=== PATIENT | female | born 1990 | race Caucasian/White ===

== ENCOUNTER 2016-09-19 21:37 | Emergency (ER) | payer MEDICAID ==
[2016-09-19 21:44] VITALS: BP 151/96
--- NOTE | 2016-09-19 21:48 | ER Document Report ---
ED Medical Screen (RME) - General Stated Complaint: RIGHT LEG PAIN Time seen by provider: 21:46 Mode of Arrival: Ambulatory Information source: Patient Notes: 25-year-old female complaining of a burning soreness behind her right knee that started this morning when she woke up. There was no injury. No history of DVT. He talked to a friend of hers who is a nurse and told her she needed to be checked to rule out if it was a blood clot. road trip to [place] 2 weeks ago. HEIDE robb. TRAVEL OUTSIDE OF THE [place] IN LAST 30 DAYS: No - Related Data Allergies/Adverse Reactions: No Known Allergies Allergy (Verified 01/25/15 16:15) Past Medical History - Past Medical History Cardiac Medical History: Reports: Hx Hypertension - She reports last year she had elevated BP, no meds, no HTN now - Immunizations Immunizations up to date: No Hx Diphtheria, Pertussis, Tetanus Vaccination: Yes Physical Exam - Vital signs Vitals: Temp Pulse Resp BP Pulse Ox 98.2 F 90 16 151/96 H 100 09/19/16 21:43 09/19/16 21:43 09/19/16 21:43 09/19/16 21:43 09/19/16 21:43 Course - Vital Signs Vital signs: Temp Pulse Resp BP Pulse Ox 98.2 F 90 16 151/96 H 100 09/19/16 21:43 09/19/16 21:43 09/19/16 21:43 09/19/16 21:43 09/19/16 21:43
--- NOTE | 2016-09-19 23:20 | ER Document Report ---
ED General - General Chief Complaint: Leg Pain Stated Complaint: RIGHT LEG PAIN Mode of Arrival: Ambulatory Notes: Patient is a 25-year-old female without past medical history, current active smoker, has a Mirena IUD who presents with 2 days of progressively worsening right lower extremity pain. States the pain is primarily located over the popliteal fossa. She has described as a constant, aching, mild pain. Nothing improves or worsens the pain. She has no history of similar symptoms in the past. She has not seen her primary care physician regarding today's concerns. Denies any trauma to the area. No prior history of a DVT or pulmonary embolus. She has not noted any significant leg swelling. TRAVEL OUTSIDE OF THE [place] IN LAST 30 DAYS: No - Related Data Allergies/Adverse Reactions: No Known Allergies Allergy (Verified 01/25/15 16:15) Past Medical History - General Information source: Patient - Social History Smoking Status: Current Every Day Smoker Chew tobacco use (# tins/day): No Frequency of alcohol use: Rare Drug Abuse: None Lives with: Spouse/Significant other Family History: Reviewed & Not Pertinent Patient has suicidal ideation: No Patient has homicidal ideation: No - Past Medical History Cardiac Medical History: Reports: Hx Hypertension - She reports last year she had elevated BP, no meds, no HTN now Renal/ Medical History: Denies: Hx Peritoneal Dialysis - Immunizations Immunizations up to date: No Hx Diphtheria, Pertussis, Tetanus Vaccination: Yes Review of Systems - Review of Systems Notes: Constitutional: Negative for fever. HENT: Negative for sore throat. Eyes: Negative for visual changes. Cardiovascular: Negative for chest pain. Respiratory: Negative for shortness of breath. Gastrointestinal: Negative for abdominal pain, vomiting or diarrhea. Genitourinary: Negative for dysuria. Musculoskeletal: Negative for back pain. Right leg pain Skin: Negative for rash. Neurological: Negative for headaches, weakness or numbness. 10 point ROS negative except as marked above and in HPI. Physical Exam - Vital signs Vitals: Temp Pulse Resp BP Pulse Ox 98.2 F 90 16 151/96 H 100 09/19/16 21:43 09/19/16 21:43 09/19/16 21:43 09/19/16 21:43 09/19/16 21:43 Interpretation: Hypertensive Notes: PHYSICAL EXAMINATION: GENERAL: Well-appearing, well-nourished and in no acute distress. HEAD: Atraumatic, normocephalic. EYES: Pupils equal round and reactive to light, extraocular movements intact, sclera anicteric, conjunctiva are normal. ENT: nares patent, oropharynx clear without exudates. Moist mucous membranes. NECK: Normal range of motion, supple without lymphadenopathy LUNGS: Breath sounds clear to auscultation bilaterally and equal. No wheezes rales or rhonchi. HEART: Regular rate and rhythm without murmurs ABDOMEN: Soft, nontender, normoactive bowel sounds. No guarding, no rebound. No masses appreciated. EXTREMITIES: Normal range of motion, no pitting or edema. Pain on palpation of popliteal fossa. No cyanosis. NEUROLOGICAL: No focal neurological deficits. Moves all extremities spontaneously and on command. PSYCH: Normal mood, normal affect. SKIN: Warm, Dry, normal turgor, no rashes or lesions noted. Course - Re-evaluation Re-evalutation: 09/19/16 23:18 Patient presents with symptoms concerning for possible right lower extremities DVT including popliteal fossa discomfort, slight swelling of the leg, and multiple risk factors including smoking and an estrogen containing IUD. However , the degree of swelling is not greater than 1 cm circumference. Moreover, progressively worsening over the last 2 weeks and I do not believe that she should be immediately started on anticoagulation at this time. I have offered the patient can stay here in the emergency department for monitoring and ultrasound in the morning versus returning in the morning for a peripheral ultrasound. She and her at the bedside elected to return in the a.m. for a venous Doppler study to definitively exclude a DVT. Will discharge at this time with instructions to return in the morning. Return precautions also discussed. - Vital Signs Vital signs: Temp Pulse Resp BP Pulse Ox 98.2 F 90 16 151/96 H 100 09/19/16 21:43 09/19/16 21:43 09/19/16 21:43 09/19/16 21:43 09/19/16 21:43 Discharge - Discharge Clinical Impression: Right leg pain Condition: Good Disposition: HOME, SELF-CARE Additional Instructions: Please return the morning for a ultrasound of your right lower extremity to exclude a DVT. Return sooner if you have worsening pain, increased swelling, shortness of breath, pass out or have any other symptoms that are worrisome to you. Referrals: MONICA PORTILLO DIGITAL PRODUCER [Primary Care Provider] - Follow up as needed
== END 2016-09-19 23:30 | disposition home or self-care (01) ==
LOC: ER 21:37
DX: M79.604 Pain in right leg (principal); F17.210 Nicotine dependence, cigarettes, uncomplicated
CPT/HCPCS: 99283

== ENCOUNTER 2016-09-20 12:47 | Emergency (ER) | payer MEDICAID ==
--- NOTE | 2016-09-20 13:03 | ER Document Report ---
ED Medical Screen (RME) - General Stated Complaint: RIGHT LEG PAIN Time seen by provider: 13:02 Mode of Arrival: Ambulatory Information source: Patient Notes: 25-year-old female developed posterior right leg pain yesterday morning. She was seen in the emergency room last night and returned today for the venous Doppler ultrasound. It has already been done and radiology is reading.No reading yet. Prelim by US tech is negative. gait is stable. TRAVEL OUTSIDE OF THE [place] IN LAST 30 DAYS: No - Related Data Allergies/Adverse Reactions: No Known Allergies Allergy (Verified 09/20/16 14:22) Past Medical History - Past Medical History Cardiac Medical History: Reports: Hx Hypertension - She reports last year she had elevated BP, no meds, no HTN now Renal/ Medical History: Denies: Hx Peritoneal Dialysis - Immunizations Immunizations up to date: No Hx Diphtheria, Pertussis, Tetanus Vaccination: Yes Physical Exam - Vital signs Vitals: Temp Pulse Resp BP Pulse Ox 98.4 F 93 16 131/90 H 99 09/20/16 13:24 09/20/16 13:24 09/20/16 13:24 09/20/16 13:24 09/20/16 13:24 Course - Vital Signs Vital signs: Temp Pulse Resp BP Pulse Ox 98.4 F 93 16 131/90 H 99 09/20/16 13:24 09/20/16 13:24 09/20/16 13:24 09/20/16 13:24 09/20/16 13:24
--- NOTE | 2016-09-20 15:56 | ER Document Report ---
[id number] 4d RIGHT LEG PAIN Mode of Arrival: Ambulatory Notes: The patient is a 25-year-old female who presents with 2 days of right lower leg pain and back pain. She was seen in the emergency room last night and was told to come back to the emergency room today for a Doppler ultrasound because of concern for DVT. She is not on OCPs and no recent long travel or immobilization. Denies numbness, tingling, saddle anesthesia, change in bowel or bladder or difficulty walking. TRAVEL OUTSIDE OF THE [place] IN LAST 30 DAYS: No - Related Data Allergies/Adverse Reactions: No Known Allergies Allergy (Verified 09/20/16 14:22) Past Medical History - General Information source: Patient - Social History Smoking Status: Current Every Day Smoker Chew tobacco use (# tins/day): No Frequency of alcohol use: None Family History: Reviewed & Not Pertinent Patient has suicidal ideation: No Patient has homicidal ideation: No - Past Medical History Cardiac Medical History: Reports: Hx Hypertension - She reports last year she had elevated BP, no meds, no HTN now Renal/ Medical History: Denies: Hx Peritoneal Dialysis - Immunizations Immunizations up to date: No Hx Diphtheria, Pertussis, Tetanus Vaccination: Yes Review of Systems - Review of Systems Notes: REVIEW OF SYSTEMS: CONSTITUTIONAL: -fevers, -chills EENT: -eye pain, -difficulty swallowing, -nasal congestion CARDIOVASCULAR:-chest pain, -syncope. RESPIRATORY: -cough, -SOB GASTROINTESTINAL: -abdominal pain, -nausea, -vomiting, -diarrhea GENITOURINARY: -dysuria, -hematuria MUSCULOSKELETAL: +back pain, +right calf pain, -neck pain SKIN: -rash or skin lesions. HEMATOLOGIC: -easy bruising or bleeding. LYMPHATIC: -swollen, enlarged glands. NEUROLOGICAL: -altered mental status or loss of consciousness, -headache, - neurologic symptoms PSYCHIATRIC: -anxiety, -depression. ALL OTHER SYSTEMS REVIEWED AND NEGATIVE. Physical Exam - Vital signs Vitals: Temp Pulse Resp BP Pulse Ox 98.4 F 93 16 131/90 H 99 09/20/16 13:24 09/20/16 13:24 09/20/16 13:24 09/20/16 13:24 09/20/16 13:24 - Notes Notes: PHYSICAL EXAMINATION: GENERAL: Well-appearing, well-nourished and in no acute distress. HEAD: Atraumatic, normocephalic. EYES: Pupils equal round and reactive to light, extraocular movements intact, sclera anicteric, conjunctiva are normal. ENT: nares patent, oropharynx clear without exudates. Moist mucous membranes. NECK: Normal range of motion, supple without lymphadenopathy LUNGS: Breath sounds clear to auscultation bilaterally and equal. No wheezes rales or rhonchi. HEART: Regular rate and rhythm without murmurs ABDOMEN: Soft, nontender, normoactive bowel sounds. No guarding, no rebound. No masses appreciated. EXTREMITIES: Normal range of motion, no pitting or edema. No cyanosis. Right calf tenderness, negative Rolo's sign. Strong distal pulses. NEUROLOGICAL: Cranial nerves grossly intact. Normal speech, normal gait. Normal sensory, motor, and reflex exams. PSYCH: Normal mood, normal affect. SKIN: Warm, Dry, normal turgor, no rashes or lesions noted. Course - Re-evaluation Re-evalutation: DVT ultrasound negative. No red flag signs for low back pain. We will treat with anti-inflammatories and follow up at primary care physician. - Vital Signs Vital signs: Temp Pulse Resp BP Pulse Ox 98.5 F 77 15 127/75 H 100 09/20/16 16:10 09/20/16 16:10 09/20/16 16:10 09/20/16 16:10 09/20/16 16:10 Discharge - Discharge Clinical Impression: Right leg pain Back pain Qualifiers: Back pain location: low back pain Chronicity: acute Back pain laterality: unspecified Sciatica presence: without sciatica Qualified Code(s): M54.5 - Low back pain Condition: Good Disposition: HOME, SELF-CARE Additional Instructions: Your ultrasound does not show any evidence of blood clots in your leg. He may take Tylenol and Motrin to help with any pain. Use Salonpas [id number] lidocaine patches to help with her back pain. Follow-up with your primary care physician. LOW BACK PAIN: Three out of every four people will have an episode of disabling back pain during their lifetime. Most commonly the pain is due to straining of the muscles and ligaments in the low back. Usual treatment includes: (1) Rest on a firm surface. Avoid lying on your stomach. (2) Ice pack the painful area. After a few days, gentle heat may be used intermittently to relax the area, or ice packs can be continued. (3) Medication may be needed -- muscle relaxers and antiinflammatory medicines are commonly used. (4) As the back improves, exercises are prescribed to strengthen the back and abdominal muscles. Your doctor will advise you on the proper care for your back at each stage in your recovery. You may be better in a few days -- or healing may take several weeks. If new symptoms of a "herniated disc" (radiation of pain, numbness, or tingling down the back of the leg or weakness in the leg) occur, you should be re-examined. Further testing may be necessary. ICE PACKS: Apply ice packs frequently against the painful area. Many different schedules are recommended, such as "20 minutes on, 20 minutes off" or "one hour ice, two hours rest." If you need to work, you may need to go longer between ice treatments. You should plan to have the area ice packed AT LEAST one fourth of the time. The ice should be applied over the wrap, tape, or splint, or over a layer of cloth -- not directly against the skin. Some ice bags have a built-in cloth and can be put directly on the skin. WARM PACKS: After approximately two days, apply gentle heat (such as a heating pad or hot water bottle) for about 20 to 30 minutes about every two hours -- at least four times daily. Warmth and elevation will help you make a more rapid recovery , and will ease the pain considerably. Do not use HOT heat, and never apply heat for longer than 30 minutes. The continuous heat can invisibly damage skin and muscles -- even when no burn is seen on the surface. Damaged muscles can make you MORE sore. FOLLOW-UP CARE: If you have been referred to a physician for follow-up care, call the physician s office for an appointment as you were instructed or within the next two days. If you experience worsening or a significant change in your symptoms, notify the physician immediately or return to the Emergency Department at any time for re-evaluation. SPRAIN: Your injury is a sprain. A sprain results from stretching or tearing of the ligaments, usually from a twisting injury. The ligaments will require time and protection in order to heal properly. Many sprains are quite disabling and should be taken seriously. The usual initial treatment of sprains is cold packs, elevation, and rest of the injured area. Your physician has assessed the seriousness of your ligament injury, and has outlined a treatment plan. Understand that this treatment may change, depending on how you progress. If a re-examination was recommended, it is important that you follow up as instructed. Call the doctor any time if there is severe pain, numbness, or loss of function in the injured area. SPRAINED KNEE: Your sprained knee results from a stretching or tearing of the ligaments which support the joint. This often results from a bending stress -- such as a twisting fall while skiing or a "clip" while playing football. The ligaments will require time and protection to heal adequately. A knee sprain can be quite serious, and should be taken seriously. The usual treatment is splinting of the knee, ice packs, and elevation. You shouldn't walk on the leg if weightbearing is painful. Unless the sprain is obviously a minor one, follow-up exam is very important. The degree of ligament damage often cannot be fully assessed at first due to muscle spasm and pain. Your treatment plan may change based on the physician's findings during your follow-up examination. Call the doctor at once if there is severe swelling, increasing pain, numbness, or other alarming symptoms. ICE & ELEVATION: Apply ice packs frequently against the painful area. Many different schedules are recommended, such as "20 minutes on, 20 minutes off" or "one hour ice, two hours rest." If you need to work, you may need to go longer between ice treatments. You should plan to have the area ice packed AT LEAST one- fourth of the time. The ice should be applied over the wrap, tape, or splint, or over a layer of cloth -- not directly against the skin. Some ice bags have a built-in cloth and can be put directly on the skin. Your injured part should be elevated as much as possible over the next 48 hours. Try to keep the injury above the level of the heart. Avoid use of the injured area. Elevation and rest will decrease the swelling. USE OF [id number] IBUPROFEN: Ibuprofen (Advil, Nuprin, Medipren, Motrin IB) is a medication for fever and pain control. In addition, it has anti- inflammatory effects which may be beneficial, especially in the treatment of injuries. It's best to take ibuprofen with food. Persons with ulcer disease or allergy to aspirin should notify their physician of this before taking ibuprofen. Ibuprofen can be given every four to six hours, for a total of four doses daily. Age Pain or fever dose Antiinflammatory dose 6-8 yr 200 mg (1 tab) 200 mg (1 tab) 9-11 yr 200 mg (1 tab) 200-400 mg (1-2 tab) 11-14 yr 200-400 mg (1-2 tab) 400 mg (2 tab) 15-adult 400 mg (2 tab) 600 mg (3 tab) ORAL NARCOTIC MEDICATION: You have been given a prescription for pain control. This medication is a narcotic. It's best taken with food, as nausea can result if taken on an empty stomach. Don't operate machinery or drive within six hours of taking this medication. Do not combine this medicine with alcohol, or with any medication which can cause sedation (such as cold tablets or sleeping pills) unless you get permission from the physician. Narcotics tend to cause constipation. If possible, drink plenty of fluids and eat a diet high in fiber and fruits. Please be aware that prescription narcotics also have the potential for abuse. People become addicted to these medications because of the general sense of wellbeing that they induce. This feeling along with a significant reduction in tension, anxiety, and aggression provides a stimulating seductive quality to these drugs. Once your pain is under control, we encourage you to discard your unused narcotics. FOLLOW-UP CARE: If you have been referred to a physician for follow-up care, call the physician s office for an appointment as you were instructed or within the next two days. If you experience worsening or a significant change in your symptoms, notify the physician immediately or return to the Emergency Department at any time for re-evaluation. Referrals: IVETTE DUMONT MD [Primary Care Provider] - Follow up as needed
[2016-09-20 16:37] VITALS: BP 127/75
== END 2016-09-20 16:10 | disposition home or self-care (01) ==
LOC: ER 12:47
DX: M79.604 Pain in right leg (principal); M54.5 Low back pain; M54.9 Dorsalgia, unspecified; F17.210 Nicotine dependence, cigarettes, uncomplicated
CPT/HCPCS: 93971; 99283

== ENCOUNTER 2016-11-17 07:31 | Day surgery (SDC) | payer MEDICAID ==
[2016-11-11 10:46] LABS: HEMOGLOBIN 13.3 g/dL (12.0-15.5); HGB HCT DIFFERENCE -0.1; MEAN CORPUSCULAR HEMOGLOBIN 28.4 pg (27.0-33.4); MEAN CORPUSCULAR HGB CONC 33.3 g/dL (32.0-36.0); MEAN CORPUSCULAR VOLUME 86 fl (80-97); RED BLOOD COUNT 4.68 10^6/uL (3.72-5.28); RED CELL DISTRIBUTION WIDTH 14.5 % (11.5-14.0); WHITE BLOOD COUNT 7.4 10^3/uL (4.0-10.5)
[2016-11-11 10:50] LABS: APPEARANCE,URINE CLEAR; BILIRUBIN,URINE NEGATIVE (NEGATIVE); GLUCOSE, URINE NEGATIVE (NEGATIVE); KETONES,URINE NEGATIVE (NEGATIVE); LEUKOCYTE ESTERASE,URINE NEGATIVE (NEGATIVE); NITRITE,URINE NEGATIVE (NEGATIVE); PROTEIN,URINE NEGATIVE (NEGATIVE); UROBILINOGEN,URINE NEGATIVE mg/dL (<2.0)
[~2016-11-17 07:31] MED LIST: DEXMEDETOMIDINE INJ 80 MCG/20 ML VIAL IV ONE; FENTANYL CITRATE INJ/PF 100 MCG/2 ML AMPUL ONE; LACTATED RINGERS 1000 ML IV PRN; MIDAZOLAM 2 MG/2 ML INJ ONE; PROPOFOL INJ 200 MG/20 ML VIAL IV ONE
[2016-11-17] MEDS ORDERED: DIPHENHYDRAMINE HCL 50 MG/ML VIAL IV PRN (08:49)
[2016-11-17] MEDS ORDERED: PROMETHAZINE HCL INJ 25 MG/1 ML VIAL IV PRN ×2 (08:49)
[2016-11-17] MEDS ORDERED: MORPHINE SULFATE 10 MG/ML INJ IV PRN (08:49)
[2016-11-17] MEDS ORDERED: MEPERIDINE HCL/PF INJ 25 MG/1 ML DISP.SYRIN IV PRN (08:49)
[2016-11-17] MEDS ORDERED: FENTANYL CITRATE INJ/PF 100 MCG/2 ML AMPUL IV PRN ×3 (08:49)
[2016-11-17] MEDS ORDERED: OXYCODONE-ACETAMINOPHEN 5-325 MG TABLET PO PRN ×4 (08:49→09:05)
[2016-11-17] MEDS ORDERED: IBUPROFEN 800 MG TABLET PO PRN (09:04)
[2016-11-17] MEDS ORDERED: MORPHINE SULFATE 10 MG/ML INJ IM PRN (09:04)
[2016-11-17 10:02] VITALS: BP 119/86
[2016-11-17] MEDS ORDERED: ONDANSETRON HCL INJ/PF 4 MG/2 ML SDV ONE (10:58)
[2016-11-17] MEDS ORDERED: DEXAMETHASONE SOD PHOSPHATE INJ 4 MG/1 ML VIAL ONE (10:58)
[2016-11-17] MEDS ORDERED: LIDOCAINE 2% INJ-PF (20 MG/ML) 10 ML AMPUL ONE (10:58)
--- NOTE | 2017-01-06 22:03 | OPERATIVE REPORT E ---
Operative Report NAME: PIO BARRAGAN : 1990 AGE: 26Y DATE OF SURGERY: 11/17/2016 ROOM: PREOPERATIVE DIAGNOSIS: Retained IUD. POSTOPERATIVE DIAGNOSIS: Retained IUD. PROCEDURE: 1. Exam under anesthesia. 2. Removal of IUD. SURGEON: Jose Taylor D.O. COMPUTER TECHNOLOGY TEACHER: None. ANESTHESIA: General tracheal anesthesia. COMPLICATIONS: None. PATHOLOGY: None. ESTIMATED BLOOD LOSS: Less that 5 mL. FINDINGS: IUD easily removed. PROCEDURE: The patient was taken to the operating room where she was placed in the dorsal supine position upon the operating table. She was then administered general tracheal anesthesia. Once this was found to be adequate, she was placed in the dorsal lithotomy position in Alessio stirrups. She was then prepped and draped in normal sterile fashion. A *------* speculum was then placed inside the patient's vagina. The cervix was easily visualized and grasped by the anterior lip of the single tooth tenaculum using a pair of forceps. The forceps were passed through the cervix and the IUD was felt and then easily removed with the forceps without difficulty with excellent hemostasis. Following this, the speculum was then removed from the patient's vagina. At this point in time the procedure was terminated. All sponge, lap needle counts were correct x2. Patient tolerated the procedure well. The patient was taken to recovery room in stable condition. DICTATING PHYSICIAN: Jose Taylor DO [id number] PHY#: [id number] ID: [id number] JOB#: [id number] ACCT: [id number] cc:Jose Taylor D.O. >
== END 2016-11-17 10:05 | disposition home or self-care (01) ==
LOC: OROUT 07:31
PROVIDERS: ATTEND Obstetrics & Gynecology
PROC: 0UPD7HZ Removal of Contraceptive Device from Uterus and Cervix, Via Natural or Artificial Opening (ICD-10-PCS; principal; 2016-11-17 09:30)
DX: T83.32XD Displacement of intrauterine contraceptive device, subsequent encounter (principal); Y76.3 Surgical instruments, materials and obstetric and gynecological devices (including sutures) associated with adverse incidents; F17.210 Nicotine dependence, cigarettes, uncomplicated
CPT/HCPCS: 36415; 85027; 81025; 81001; 58301; J2250; J1100; J3010; J2405; J2704; J3490 ×2; 940

== ENCOUNTER 2017-10-17 12:26 | Emergency (ER) | payer MEDICAID ==
--- NOTE | 2017-10-17 13:12 | ER Document Report ---
ED Medical Screen (RME) - General Chief Complaint: Pelvic Pain Stated Complaint: ABDOMINAL PAIN/ VAGINAL BLEEDING Time Seen by Provider: 10/17/17 13:07 Mode of Arrival: Ambulatory Information source: Patient Notes: 27-year-old female 3 para 1 (1 termination, 1 miscarriage), last normal menstrual period August 28, presents to the emergency room with left suprapubic pain, vaginal bleeding. Patient is sexually active. She has had unprotected sex. TRAVEL OUTSIDE OF THE [place] IN LAST 30 DAYS: No - Related Data Allergies/Adverse Reactions: No Known Allergies Allergy (Verified 10/17/17 12:31) Past Medical History - General Last Menstrual Period: 09/02/17 - Social History Chew tobacco use (# tins/day): No Frequency of alcohol use: Occasional Drug Abuse: None - Past Medical History Cardiac Medical History: Denies: Hx Coronary Artery Disease, Hx Heart Attack, Hx Hypertension Pulmonary Medical History: Denies: Hx Asthma, Hx Bronchitis, Hx COPD, Hx Pneumonia Neurological Medical History: Denies: Hx Cerebrovascular Accident, Hx Seizures Renal/ Medical History: Denies: Hx Peritoneal Dialysis Musculoskeltal Medical History: Denies Hx Arthritis - Immunizations Immunizations up to date: No Hx Diphtheria, Pertussis, Tetanus Vaccination: Yes Physical Exam - Vital signs Vitals: Temp Pulse Resp BP Pulse Ox 98.3 F 105 H 20 143/91 H 99 10/17/17 12:37 10/17/17 12:37 10/17/17 12:37 10/17/17 12:37 10/17/17 12:37 Course - Vital Signs Vital signs: Temp Pulse Resp BP Pulse Ox 98.3 F 105 H 20 143/91 H 99 10/17/17 12:37 10/17/17 12:37 10/17/17 12:37 10/17/17 12:37 10/17/17 12:37
[2017-10-17 13:51] LABS: ABSOLUTE BASOPHILS # (AUTO) 0.1 10^3/uL (0.0-0.2); ABSOLUTE EOSINOPHILS # (AUTO) 0.3 10^3/uL (0.0-0.6); ABSOLUTE LYMPHOCYTES (AUTO) 1.5 10^3/uL (0.5-4.7); ABSOLUTE MONOCYTES (AUTO) 0.3 10^3/uL (0.1-1.4); ABSOLUTE NEUT (AUTO) 3.6 10^3/uL (1.7-8.2); BASOPHILS % (AUTO) 1.1 % (0-2); EOSINOPHILS % (AUTO) 4.7 % (0-6); HEMATOCRIT 41.6 % (36.0-47.0); HEMOGLOBIN 14.1 g/dL (12.0-15.5); LYMPHOCYTES % (AUTO) 25.9 % (13-45); MEAN CORPUSCULAR HEMOGLOBIN 29.9 pg (27.0-33.4); MEAN CORPUSCULAR HGB CONC 33.9 g/dL (32.0-36.0); MEAN CORPUSCULAR VOLUME 88 fl (80-97); PLATELET COUNT 193 10^3/uL (150-450); RED BLOOD COUNT 4.72 10^6/uL (3.72-5.28); RED CELL DISTRIBUTION WIDTH 14.3 % (11.5-14.0); SEGMENTED NEUTROPHILS % (AUTO) 63.3 % (42-78); TOTAL CELLS COUNTED % (AUTO) 100 %; WHITE BLOOD COUNT 5.7 10^3/uL (4.0-10.5)
[2017-10-17 14:08] LABS: ALANINE AMINOTRANSFERASE 39 U/L (9-52); ALKALINE PHOSPHATASE 62 U/L (38-126); ANION GAP 10 (5-19); ASPARTATE AMINO TRANSFERASE 24 U/L (14-36); BILIRUBIN,DIRECT 0.1 mg/dL (0.0-0.4); BILIRUBIN,TOTAL 1.5 mg/dL (0.2-1.3); BLOOD UREA NITROGEN 11 mg/dL (7-20); CALCIUM 10.1 mg/dL (8.4-10.2); CARBON DIOXIDE 25 mmol/L (22-30); CHLORIDE 106 mmol/L (98-107); GLUCOSE 90 mg/dL (75-110); POTASSIUM 4.6 mmol/L (3.6-5.0); TOTAL PROTEIN 7.5 g/dL (6.3-8.2)
[2017-10-17 14:13] LABS: APPEARANCE,URINE CLEAR; BILIRUBIN,URINE NEGATIVE (NEGATIVE); GLUCOSE, URINE NEGATIVE (NEGATIVE); KETONES,URINE NEGATIVE (NEGATIVE); LEUKOCYTE ESTERASE,URINE MODERATE (NEGATIVE); NITRITE,URINE NEGATIVE (NEGATIVE); PROTEIN,URINE 100 mg/dL (NEGATIVE); URINE SPECIFIC GRAVITY 1.009; UROBILINOGEN,URINE NEGATIVE mg/dL (<2.0)
[2017-10-17 14:14] LABS: COLOR,URINE RED
[2017-10-17] MEDS ORDERED: OXYCODONE-ACETAMINOPHEN 5-325 MG TABLET PO ONE (14:43)
--- NOTE | 2017-10-17 14:44 | ER Document Report ---
ED GI/ - General Chief Complaint: Pelvic Pain Stated Complaint: ABDOMINAL PAIN/ VAGINAL BLEEDING Time Seen by Provider: 10/17/17 13:07 Mode of Arrival: Ambulatory Information source: Patient Notes: Patient is a 27-year-old female who presents to the ER today for left lower abdominal pain that started yesterday. Patient denies any vaginal bleeding, discharge. Patient states that she is approximately 2 weeks late getting her menstrual cycle and thinks that she could be . She has not taken a test at home. She denies any fever, chills, nausea, vomiting, diarrhea. Patient denies any history of ovarian cysts. She denies any burning with urination or low back pain. TRAVEL OUTSIDE OF THE [place] IN LAST 30 DAYS: No - Related Data Allergies/Adverse Reactions: No Known Allergies Allergy (Verified 10/17/17 12:31) Past Medical History - General Information source: Patient Last Menstrual Period: 09/02/17 - Social History Smoking Status: Current Every Day Smoker Chew tobacco use (# tins/day): No Frequency of alcohol use: Occasional Drug Abuse: None Family History: Reviewed & Not Pertinent Patient has suicidal ideation: No Patient has homicidal ideation: No - Past Medical History Cardiac Medical History: Denies: Hx Coronary Artery Disease, Hx Heart Attack, Hx Hypertension Pulmonary Medical History: Denies: Hx Asthma, Hx Bronchitis, Hx COPD, Hx Pneumonia Neurological Medical History: Denies: Hx Cerebrovascular Accident, Hx Seizures Renal/ Medical History: Denies: Hx Peritoneal Dialysis Musculoskeltal Medical History: Denies Hx Arthritis - Immunizations Immunizations up to date: No Hx Diphtheria, Pertussis, Tetanus Vaccination: Yes Review of Systems - Review of Systems Constitutional: No symptoms reported EENT: No symptoms reported Cardiovascular: No symptoms reported Respiratory: No symptoms reported Gastrointestinal: See HPI Genitourinary: No symptoms reported Female Genitourinary: See HPI Musculoskeletal: No symptoms reported Skin: No symptoms reported Hematologic/Lymphatic: No symptoms reported Neurological/Psychological: No symptoms reported Physical Exam - Vital signs Vitals: Temp Pulse Resp BP Pulse Ox 98.3 F 105 H 20 143/91 H 99 10/17/17 12:37 10/17/17 12:37 10/17/17 12:37 10/17/17 12:37 10/17/17 12:37 - Notes Notes: PHYSICAL EXAMINATION: GENERAL: Comfortable appearing, but in no acute distress. HEAD: Atraumatic, normocephalic. EYES: Pupils equal round and reactive to light, extraocular movements intact, sclera anicteric, conjunctiva are normal. NECK: Normal range of motion, supple without lymphadenopathy LUNGS: CTAB and equal. No wheezes rales or rhonchi. HEART: Regular rate and rhythm without murmurs ABDOMEN: Soft, mild to moderate left lower quadrant tenderness. No guarding, no rebound BACK: no vertebral tenderness, normal ROM GI/: no CVA tenderness EXTREMITIES: Normal range of motion, no pitting edema. No cyanosis. NEUROLOGICAL: Cranial nerves grossly intact. Normal sensory/motor exams. PSYCH: Normal mood, normal affect. SKIN: Warm, Dry, normal turgor, no rashes or lesions noted Course - Re-evaluation Re-evalutation: 10/17/17 21:05 Patient has moderate leukocytes and large amount of blood, greater than 182 white blood cells on her urinalysis. We will treat her with antibiotics for urinary tract infection. Patient also has 3 cm ovarian cyst on the right ovary , left ovary not visualized, no evidence for torsion obvious on ultrasound. - Vital Signs Vital signs: Temp Pulse Resp BP Pulse Ox 97.4 F 66 18 135/84 H 98 10/17/17 15:53 10/17/17 15:53 10/17/17 15:53 10/17/17 15:53 10/17/17 15:53 - Laboratory Result Diagrams: 10/17/17 13:30 10/17/17 13:30 Laboratory results interpreted by me: 10/17/17 10/17/17 10/17/17 13:30 13:30 13:30 RDW 14.3 H Total Bilirubin 1.5 H Urine Protein 100 H Urine Blood LARGE H Ur Leukocyte Esterase MODERATE H Discharge - Discharge Clinical Impression: Ovarian cyst Qualifiers: Laterality: left Qualified Code(s): N83.202 - Unspecified ovarian cyst, left side UTI (urinary tract infection) Qualifiers: Urinary tract infection type: acute cystitis Hematuria presence: with hematuria Qualified Code(s): N30.01 - Acute cystitis with hematuria Condition: Stable Disposition: HOME, SELF-CARE Additional Instructions: Return immediately for any new or worsening symptoms. Follow up with primary care provider, call tomorrow to make followup appointment. Prescriptions: Hydrocodone/Acetaminophen [[place] 5-325 mg Tablet] 1 tab PO Q4 PRN #12 tablet PRN Reason: Nitrofurantoin/Nitrofuran Mac [Macrobid 100 mg Capsule] 1 tab PO BID #14 capsule Forms: Return to Work
--- NOTE | 2017-10-17 15:28 | RADIOLOGY REPORT (SQ) ---
EXAM DESCRIPTION: U/S NON OB PEL TV W/DOPPLER COMPLETED DATE/TIME: 10/17/2017 3:15 pm REASON FOR STUDY: llq pain COMPARISON: None. TECHNIQUE: Dynamic and static grayscale images acquired of the pelvis via transvaginal approach and recorded on PACS. Additional selected color Doppler and spectral images recorded. LIMITATIONS: None. FINDINGS: UTERUS: Contour normal. No mass. ENDOMETRIAL STRIPE: No focal or generalized thickening. No masses. CERVIX: No nabothian cysts. RIGHT OVARY: 3 cm simple cyst. RIGHT OVARY DOPPLER: Normal arterial vascular flow without evidence for torsion. LEFT OVARY: Ovary not visualized. FREE FLUID: None noted. OTHER: No other significant finding. MEASUREMENTS: UTERUS: 3.8 x 5.2 x 7.4 cm. ENDOMETRIAL STRIPE: 4 mm. RIGHT OVARY: 2.9 x 3.6 x 4.0 cm. LEFT OVARY: Not visualized. IMPRESSION: 3 CM SIMPLE CYST IN THE RIGHT OVARY. LEFT OVARY NOT VISUALIZED. NO OTHER SIGNIFICANT F INDINGS. TECHNICAL DOCUMENTATION: JOB ID: [id number] [employer]- All Rights Reserved Reading location - IP/workstation name: [email or web address]
[2017-10-17] MEDS ORDERED: NITROFURANTOIN MONOHYD/M-CRYST 100 MG CAPSULE PO ONE (15:34)
[2017-10-17 15:54] VITALS: BP 135/84
== END 2017-10-17 15:53 | disposition home or self-care (01) ==
LOC: ER 12:26
DX: N83.202 Unspecified ovarian cyst, left side (principal); N30.01 Acute cystitis with hematuria; R10.2 Pelvic and perineal pain; R10.9 Unspecified abdominal pain; N93.9 Abnormal uterine and vaginal bleeding, unspecified; R10.32 Left lower quadrant pain; N89.8 Other specified noninflammatory disorders of vagina; F17.200 Nicotine dependence, unspecified, uncomplicated
CPT/HCPCS: 99284; 86900; 86901; 36415; 84702; 85025; 80053; 81001; 76830; 93976; J3490; J8499

== ENCOUNTER → 2018-03-08 | Outpatient (CLI) | payer MEDICAID ==
--- NOTE | 2018-03-08 10:04 | RADIOLOGY REPORT (SQ) ---
EXAM DESCRIPTION: MRI LUMBAR SPINE WITHOUT COMPLETED DATE/TIME: 03/08/2018 9:49 am REASON FOR STUDY: INJURY OF BACK DUE TO FALL S39.92XD UNSPECIFIED INJURY OF LOWER BACK, SUBSEQUENT ENCOUN COMPARISON: None. TECHNIQUE: Sagittal and Axial imaging includes T1, T2, STIR and gradient echo sequences. Coronal T2/ HASTE imaging. LIMITATIONS: None. FINDINGS: VISUALIZED UPPER ABDOMEN: Limited evaluation. No acute or suspicious findings suggested. SEGMENTATION: No transitional anatomy. The lowest well-developed disc space is labeled L5-S1. ALIGNMENT: Anatomic. VERTEBRAE: Intact. BONE MARROW: Normal. No marrow replacement or reactive changes. DISC SIGNAL: Normal. No significant abnormal signal or loss of height. POSTERIOR ELEMENTS: Generally intact. No pars defect evident. HARDWARE: None in the spine. CORD AND CONUS: Normal in size and signal intensity. Conus at the appropriate level. SOFT TISSUES: No aortic aneurysm seen. No bulky retroperitoneal adenopathy or mass. No paraspinal mas s or fluid. L1-L2: No significant spinal stenosis or exit foraminal stenosis. L2-L3: No significant spinal stenosis or exit foraminal stenosis. L3-L4: No significant spinal stenosis or exit foraminal stenosis. L4-L5: No significant spinal stenosis or exit foraminal stenosis. L5-S1: No significant spinal stenosis or exit foraminal stenosis. LOWER THORACIC: Incompletely imaged. No stenosis seen. SACRUM: Visualized upper sacrum intact. OTHER: No other significant findings. IMPRESSION: NORMAL MRI LUMBAR SPINE. TECHNICAL DOCUMENTATION: JOB ID: [id number] [employer]- All Rights Reserved Reading location - IP/workstation name: [email or web address]
== END ==
LOC: RAD 08:39
PROVIDERS: ATTEND Family Medicine
DX: S39.92XD Unspecified injury of lower back, subsequent encounter (principal); X58.XXXD Exposure to other specified factors, subsequent encounter
CPT/HCPCS: 72148

== ENCOUNTER → 2018-03-14 | Outpatient (CLI) | payer MEDICAID ==
[2018-03-14 18:14] LABS: ALBUMIN 4.4 g/dL (3.5-5.0); ANION GAP 11 (5-19); BLOOD UREA NITROGEN 16 mg/dL (7-20); CALCIUM 9.8 mg/dL (8.4-10.2); CARBON DIOXIDE 28 mmol/L (22-30); CHLORIDE 104 mmol/L (98-107); GLUCOSE 89 mg/dL (75-110); PHOSPHORUS 4.1 mg/dL (2.5-4.5); POTASSIUM 4.8 mmol/L (3.6-5.0); SODIUM 142.6 mmol/L (137-145)
[2018-03-14 18:19] LABS: ABSOLUTE BASOPHILS # (AUTO) 0.1 10^3/uL (0.0-0.2); ABSOLUTE EOSINOPHILS # (AUTO) 0.3 10^3/uL (0.0-0.6); ABSOLUTE LYMPHOCYTES (AUTO) 2.1 10^3/uL (0.5-4.7); ABSOLUTE MONOCYTES (AUTO) 0.4 10^3/uL (0.1-1.4); ABSOLUTE NEUT (AUTO) 4.2 10^3/uL (1.7-8.2); BASOPHILS % (AUTO) 0.9 % (0-2); EOSINOPHILS % (AUTO) 4.8 % (0-6); HEMATOCRIT 41.1 % (36.0-47.0); HEMOGLOBIN 13.8 g/dL (12.0-15.5); LYMPHOCYTES % (AUTO) 29.5 % (13-45); MEAN CORPUSCULAR HEMOGLOBIN 29.4 pg (27.0-33.4); MEAN CORPUSCULAR HGB CONC 33.5 g/dL (32.0-36.0); MEAN CORPUSCULAR VOLUME 88 fl (80-97); MONOCYTES % (AUTO) 5.1 % (3-13); PLATELET COUNT 224 10^3/uL (150-450); RED BLOOD COUNT 4.67 10^6/uL (3.72-5.28); RED CELL DISTRIBUTION WIDTH 13.7 % (11.5-14.0); SEGMENTED NEUTROPHILS % (AUTO) 59.7 % (42-78); TOTAL CELLS COUNTED % (AUTO) 100 %; WHITE BLOOD COUNT 7.1 10^3/uL (4.0-10.5)
[2018-03-14 18:26] LABS: FREE T3 3.07 pg/mL (2.77-5.27); FREE T4 (FREE THYROXINE) 0.82 ng/dL (0.78-2.19)
[2018-03-14 18:40] LABS: THYROID STIMULATING HORMONE 1.63 uIU/mL (0.47-4.68)
[2018-03-14 19:01] LABS: ERYTHROCYTE SEDIMENTATION RATE 8 mm/hr (0-20)
== END ==
LOC: LAB 17:07
PROVIDERS: ATTEND Internal Medicine Cardiovascular Disease
DX: R00.2 Palpitations (principal)
CPT/HCPCS: 36415; 80048; 80069; 83735; 84439; 84443; 84481; 85025; 85652

== ENCOUNTER → 2019-01-26 | Outpatient (CLI) | payer MEDICAID ==
--- NOTE | 2019-01-26 17:28 | RADIOLOGY REPORT (SQ) ---
EXAM DESCRIPTION: T SPINE AP/LAT COMPLETED DATE/TIME: 01/26/2019 4:46 pm REASON FOR STUDY: MID BACK PAIN M54.9 DORSALGIA, UNSPECIFIED COMPARISON: None. NUMBER OF VIEWS: Two views. TECHNIQUE: AP and lateral radiographic images acquired of the thoracic spine. LIMITATIONS: None. FINDINGS: MINERALIZATION: Normal. ALIGNMENT: Normal. No scoliosis. VERTEBRAE: No fracture or bone lesion. Maintained height, normal segmentation. DISCS: No significant loss of height or significant narrowing. No large osteophytes. HARDWARE: None in the spine. MEDIASTINUM AND SOFT TISSUES: Normal heart size and aortic contour. No soft tissue abnormality. VISUALIZED LUNG RASMUSSEN: Clear. OTHER: No other significant finding. IMPRESSION: NO SIGNIFICANT RADIOGRAPHIC FINDING IN THE THORACIC SPINE. TECHNICAL DOCUMENTATION: JOB ID: [id number] [employer]- All Rights Reserved Reading location - IP/workstation name: [email or web address]
== END ==
LOC: OD 16:29
PROVIDERS: ATTEND Nurse Practitioner Family
DX: M54.9 Dorsalgia, unspecified (principal)
CPT/HCPCS: 72070

== ENCOUNTER 2019-04-21 12:59 | Day surgery (SDC) | payer MEDICAID ==
[2019-04-21] MEDS ORDERED: DOXYCYCLINE HYCLATE 100 MG in DEXTROSE 5%-WATER 250 ML IV PRN (13:26)
[2019-04-21 13:40] LABS: APPEARANCE,URINE CLOUDY; BILIRUBIN,URINE NEGATIVE (NEGATIVE); GLUCOSE, URINE NEGATIVE (NEGATIVE); KETONES,URINE TRACE mg/dL (NEGATIVE); LEUKOCYTE ESTERASE,URINE NEGATIVE (NEGATIVE); NITRITE,URINE NEGATIVE (NEGATIVE); PROTEIN,URINE 30 mg/dL (NEGATIVE); URINE SPECIFIC GRAVITY 1.025
[2019-04-21 13:41] LABS: COLOR,URINE YELLOW
[2019-04-21 13:50] LABS: HEMATOCRIT 35.5 % (36.0-47.0); HEMOGLOBIN 12.2 g/dL (12.0-15.5); MEAN CORPUSCULAR HEMOGLOBIN 29.7 pg (27.0-33.4); MEAN CORPUSCULAR HGB CONC 34.3 g/dL (32.0-36.0); MEAN CORPUSCULAR VOLUME 87 fl (80-97); PLATELET COUNT 192 10^3/uL (150-450); RED CELL DISTRIBUTION WIDTH 14.8 % (11.5-14.0); WHITE BLOOD COUNT 7.5 10^3/uL (4.0-10.5)
[2019-04-21] MEDS ORDERED: ALBUTEROL SULFATE 0.083% NEB 2.5 MG/3 ML AMPUL NEB ONE (14:22)
[2019-04-21] MEDS ORDERED: MIDAZOLAM 2 MG/2 ML INJ ONE (15:24)
[2019-04-21] MEDS ORDERED: FENTANYL CITRATE INJ/PF 100 MCG/2 ML AMPUL ONE (15:24)
[2019-04-21] MEDS ORDERED: PROPOFOL INJ 200 MG/20 ML VIAL IV ONE (15:25)
[2019-04-21] MEDS ORDERED: MISOPROSTOL 0.2 MG TABLET ONE (15:50)
[2019-04-21] MEDS ORDERED: FENTANYL CITRATE INJ/PF 100 MCG/2 ML AMPUL IV PRN ×3 (15:54)
[2019-04-21] MEDS ORDERED: DIPHENHYDRAMINE HCL 50 MG/ML VIAL IV PRN (15:54)
[2019-04-21] MEDS ORDERED: MORPHINE SULFATE 10 MG/ML INJ IV PRN (15:54)
[2019-04-21] MEDS ORDERED: MEPERIDINE HCL/PF INJ 25 MG/1 ML DISP.SYRIN IV PRN (15:54)
[2019-04-21] MEDS ORDERED: PROMETHAZINE HCL INJ 25 MG/1 ML VIAL IV PRN ×2 (15:54)
--- NOTE | 2019-04-21 16:09 | Operative Report ---
Operative Report DATE OF SURGERY: 04/21/19 PREOPERATIVE DIAGNOSIS: 1. Blighted ovum at 6 weeks (10 weeks per LMP). 2. R h+ POSTOPERATIVE DIAGNOSIS: Same OPERATION: Suction dilatation and curettage SURGEON: PABLO LEW ANESTHESIA: Moderate Sedation TISSUE REMOVED OR ALTERED: Products of conception COMPLICATIONS: None INTRAOPERATIVE FINDINGS: Uterus sounded 9 cm; used a 10 mm curved Italian curette; moderate amounts of products of conception PROCEDURE: The patient was taken to the Operating Room where general anesthesia was obtained without difficulty. She was prepped and draped in the normal sterile fashion in the dorsal lithotomy position. Exam under anesthesia was performed and noted above. A speculum was placed in the vagina. The anterior cervix was grasped with a single-tooth tenaculum and the uterus sounded to . The cervix was noted to be slightly dilated at the beginning of the procedure. Sequential dilators were then used to dilate the cervix to accommodate the the 10 mm suction curet curved. The 10 mm curved suction curet was gently advanced in the usual fashion and good return of tissue. The suction device was then activated and the curet rotated to clear the uterus of the products of conception. A sharp curettage was then performed. The suction device was then gently zandra ntroduced and activated and the curet rotated to clear the uterus of conception which was loosened with recent sharp curettage. The sharp curettage was then performed again until a gritty texture was noted and the cavity was felt to be empty of further tissue. At this time there was minimal bleeding noted from the cervix. All instruments were removed from the patient's cervix and vagina. Sponge, lap, needle and instrument counts are correct 2. Doxycycline 100 mg IV was given perioperatively. At the end of the procedure, the patient was given 1000 mcg of Cytotec per rectum. The patient tolerated the procedure well and was taken to the recovery area awake and in stable condition. The patient was discharged home.
[2019-04-21 19:16] VITALS: BP 120/78
--- NOTE | 2019-04-21 22:59 | EKG REPORT ---
SEVERITY:- NORMAL ECG - SINUS RHYTHM : Confirmed by: Sharon Crowder MD 21-Apr-2019 22:58:45
== END 2019-04-21 18:10 | disposition home or self-care (01) ==
LOC: OROUT 12:59
PROVIDERS: ATTEND Obstetrics & Gynecology
DX: O02.1 Missed abortion (principal); Z87.891 Personal history of nicotine dependence
CPT/HCPCS: 36415; 85027; 81025; 81001; 88305 ×2; 93005; 93010; 59820; J2250; J3490; J3010; J7060; J2704; 1965

== ENCOUNTER 2019-09-06 01:19 | Emergency (ER) | payer MEDICAID ==
[2019-09-06 01:44] LABS: ABSOLUTE BASOPHILS # (AUTO) 0.1 10^3/uL (0.0-0.2); ABSOLUTE EOSINOPHILS # (AUTO) 0.4 10^3/uL (0.0-0.6); ABSOLUTE LYMPHOCYTES (AUTO) 1.3 10^3/uL (0.5-4.7); ABSOLUTE MONOCYTES (AUTO) 0.4 10^3/uL (0.1-1.4); ABSOLUTE NEUT (AUTO) 4.7 10^3/uL (1.7-8.2); BASOPHILS % (AUTO) 0.8 % (0-2); EOSINOPHILS % (AUTO) 5.8 % (0-6); HEMATOCRIT 39.7 % (36.0-47.0); HEMOGLOBIN 13.3 g/dL (12.0-15.5); MEAN CORPUSCULAR HEMOGLOBIN 28.5 pg (27.0-33.4); MEAN CORPUSCULAR HGB CONC 33.5 g/dL (32.0-36.0); MEAN CORPUSCULAR VOLUME 85 fl (80-97); MONOCYTES % (AUTO) 5.9 % (3-13); PLATELET COUNT 203 10^3/uL (150-450); RED BLOOD COUNT 4.66 10^6/uL (3.72-5.28); RED CELL DISTRIBUTION WIDTH 14.3 % (11.5-14.0); SEGMENTED NEUTROPHILS % (AUTO) 68.5 % (42-78); TOTAL CELLS COUNTED % (AUTO) 100 %; WHITE BLOOD COUNT 6.9 10^3/uL (4.0-10.5)
[2019-09-06] MEDS ORDERED: ACTIVATED CHARCOAL 25 GM BOTTLE PO ONE ×2 (01:48→01:58)
--- NOTE | 2019-09-06 01:57 | ER Document Report ---
ED General - General Chief Complaint: Overdose Stated Complaint: POSS OVERDOSE/SUICIDE ATTEMPT Time Seen by Provider: 09/06/19 01:35 Primary Care Provider: DIANNE GILBERT FNP-C [Primary Care Provider] - Follow up as needed TRAVEL OUTSIDE OF THE [place] IN LAST 30 DAYS: No - HPI Notes: Patient is a 28-year-old female with a history of depression anxiety presents to the emergency department for evaluation of suicidal attempt. She states she took "2 handfuls" of her BuSpar. She states she took them about 90 minutes prior to arrival. She states she was trying to "go to sleep and never wake up." She denies any history of suicide attempt. No homicidal ideation. No visual o r auditory hallucination. She states that she did this because "for 6 years everyone has been treating her like she is a piece of shift." She states she is specifically referring to her fianc and his family. She states that her fianc told his therapist that she was alone with her child, but was asleep, so CPS was called. This prompted her attempt. She has never had a psychiatric hospitaliza tion. She states she is still suicidal at the time of my evaluation. - Related Data Allergies/Adverse Reactions: No Known Allergies Allergy (Verified 10/17/17 12:31) Home Medications: Prozac, BuSpar Past Medical History - General Information source: Patient - Social History Smoking Status: Never Smoker Drug Abuse: Marijuana - Occasional Family History: Reviewed & Not Pertinent Patient has suicidal ideation: No Patient has homicidal ideation: No - Past Medical History Cardiac Medical History: Denies: Hx Coronary Artery Disease, Hx Heart Attack, Hx Hypertension Pulmonary Medical History: Denies: Hx Asthma, Hx Bronchitis, Hx COPD, Hx Pneumonia Neurological Medical History: Denies: Hx Cerebrovascular Accident, Hx Seizures Renal/ Medical History: Denies: Hx Peritoneal Dialysis Musculoskeletal Medical History: Denies Hx Arthritis Psychiatric Medical History: Reports: Hx Anxiety, Hx Depression - Immunizations Immunizations up to date: No Hx Diphtheria, Pertussis, Tetanus Vaccination: Yes Review of Systems - Review of Systems Constitutional: No symptoms reported EENT: No symptoms reported Cardiovascular: No symptoms reported Respiratory: No symptoms reported Gastrointestinal: No symptoms reported Genitourinary: No symptoms reported Musculoskeletal: No symptoms reported Skin: No symptoms reported Neurological/Psychological: See HPI Physical Exam - Vital signs Vitals: Resp Pulse Ox 21 H 99 09/06/19 01:29 09/06/19 01:29 - Notes Notes: Is a 28-year-old female who appears her stated age, in no acute distress. She has a very depressed and flat affect, diminished eye contact, but is cooperative with examiner. Vital signs reviewed, please refer to chart. Head is normocephalic, atraumatic. Pupils equal round, reactive to light. Neck is supple without meningismus. Heart is regular rate and rhythm. Lungs are clear to auscultation bilaterally. Abdomen is soft, nontender, normoactive bowel sounds throughout. Extremities without cyanosis, clubbing. Posterior calves are nontender. Peripheral pulses are equal. Skin is warm and dry. Patient is awake, alert, neurological exam is nonfocal. Course - Re-evaluation Re-evalutation: 09/06/19 01:55 Patient presents to the emergency department for evaluation. Poison control was contacted, and it was recommended that the patient be administered activated charcoal. Initially she refused. I explained to the patient that she would be under IVC orders, her EKG showed changes, and she would either voluntarily take the activated charcoal or it would be administered to her via an NG tube. The patient is agreeable at this time taking this medication. Otherwise, she is on a library monitor. Her EKG reveals a prolonged QTc interval. We will continue contact with poison control in regards to appropriate time of disposition. Otherwise remainder of labs are pending, patient is stable suicide precautions in place. 09/06/19 05:30 EKG was repeated, her QTc interval continues to be prolonged. I contacted poison control. Upon discussing with them, I learned that the patient had told EMS originally that she had overdosed on hydroxyzine. At this point we are treating it as a combined hydroxyzine and BuSpar overdose. At any rate, her QTC interval is still prolonged. We reviewed labs. It was recommended that we optimize potassium and magnesium levels. Oral potassium and magnesium rider was ordered. It is recommended that we repeat EKG in a few hours, patient will not be medically cleared until QT interval is below 500. For comparison, I did jay arndt prior EKG performed in 2013, at which point her QTc interval was normal. IVC papers are filed. My expectation is that patient will be medically cleared in the next several hours for psychosocial evaluation. - Vital Signs Vital signs: Temp Pulse Resp BP Pulse Ox 98.2 F 16 134/98 H 100 09/06/19 05:45 09/06/19 05:45 09/06/19 05:45 09/06/19 05:45 - Laboratory Result Diagrams: 09/06/19 01:30 09/06/19 01:30 Laboratory results interpreted by me: 09/06/19 09/06/19 09/06/19 01:30 01:30 03:04 RDW 14.3 H Urine Blood LARGE H Ur Leukocyte Esterase TRACE H Salicylates < 1.0 L Acetaminophen < 10 L 09/06/19 05:10 RDW Urine Blood Ur Leukocyte Esterase Salicylates < 1.0 L Acetaminophen < 10 L - EKG Interpretation by Me Additional EKG results interpreted by me: 09/06/19 01:56 Sinus mechanism with rate of 91 bpm. Normal axis. Prolonged QT interval. No acute ST changes concerning for ischemia or infarction. 09/06/19 05:31 Repeat EKG reveals continued prolonged QTc interval at 530. Sinus mechanism of 92 bpm. Otherwise no significant changes. Discharge - Discharge Clinical Impression: Suicide attempt Condition: Stable Disposition: OTHER Referrals: DIANNE GILBERT FNP-C [Primary Care Provider] - Follow up as needed
[2019-09-06 02:20] LABS: ALBUMIN 4.1 g/dL (3.5-5.0); ALKALINE PHOSPHATASE 89 U/L (38-126); ANION GAP 7 (5-19); ASPARTATE AMINO TRANSFERASE 27 U/L (14-36); BILIRUBIN,TOTAL 0.6 mg/dL (0.2-1.3); BLOOD UREA NITROGEN 11 mg/dL (7-20); CALCIUM 9.1 mg/dL (8.4-10.2); CARBON DIOXIDE 25 mmol/L (22-30); CHLORIDE 105 mmol/L (98-107); GLUCOSE 88 mg/dL (75-110); POTASSIUM 3.9 mmol/L (3.6-5.0); TOTAL PROTEIN 6.9 g/dL (6.3-8.2)
[2019-09-06 02:21] LABS: ACETAMINOPHEN < 10 ug/mL (10-30); ALCOHOL < 10 mg/dL (NONE DETECTED); SALICYLATE < 1.0 mg/dL (2.0-20.0)
[2019-09-06 03:24] LABS: APPEARANCE,URINE SLIGHTLY-CLOUDY; BILIRUBIN,URINE NEGATIVE (NEGATIVE); COLOR,URINE YELLOW; GLUCOSE, URINE NEGATIVE (NEGATIVE); KETONES,URINE NEGATIVE (NEGATIVE); LEUKOCYTE ESTERASE,URINE TRACE (NEGATIVE); NITRITE,URINE NEGATIVE (NEGATIVE); PROTEIN,URINE NEGATIVE (NEGATIVE); URINE SPECIFIC GRAVITY 1.005; UROBILINOGEN,URINE NEGATIVE mg/dL (<2.0)
[2019-09-06 03:37] LABS: URINE AMPHETAMINES SCREEN NEGATIVE; URINE BARBITURATES SCREEN NEGATIVE; URINE BENZODIAZEPINES SCREEN NEGATIVE; URINE COCAINE SCREEN NEGATIVE; URINE METHADONE SCREEN NEGATIVE; URINE PHENCYCLIDINE SCREEN NEGATIVE
[2019-09-06 03:39] LABS: URINE MARIJUANA (THC) SCREEN UNCONFIRMED POSITIVE
[2019-09-06] MEDS ORDERED: POTASSIUM CHLORIDE 10 MEQ TABLET.ER PO ONE (05:11)
[2019-09-06] MEDS ORDERED: MAGNESIUM SULFATE/D5W 1 GM/100 ML RTUPB IV ONE (05:11)
[2019-09-06 05:50] LABS: ACETAMINOPHEN < 10 ug/mL (10-30); SALICYLATE < 1.0 mg/dL (2.0-20.0)
--- NOTE | 2019-09-06 11:00 | ER Document Report ---
Doctor's Note Notes: 09/06/19 10:59 Patient reexamined at 10:55 AM. Patient has stable vital signs. Patient is awake and alert. Patient has no complaints at this time. Patient's EKG was repeated at 10:52 AM. It shows a sinus rhythm with a rate of 80. QTc is 499. There are no ischemic changes. Patient has been cleared by poison control and is medically clear from my assessment as well.
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
--- NOTE | 2019-09-06 14:21 | EKG REPORT ---
SEVERITY:- ABNORMAL ECG - SINUS RHYTHM BORDERLINE T WAVE ABNORMALITIES PROLONGED QT INTERVAL : Confirmed by: Debbie Lee 06-Sep-2019 14:20:38
--- NOTE | 2019-09-06 14:21 | EKG REPORT ---
SEVERITY:- ABNORMAL ECG - SINUS RHYTHM PROLONGED QT INTERVAL : Confirmed by: Debbie Lee 06-Sep-2019 14:20:42
--- NOTE | 2019-09-06 14:21 | EKG REPORT ---
SEVERITY:- ABNORMAL ECG - SINUS RHYTHM PROLONGED QT INTERVAL : Confirmed by: Debbie Lee 06-Sep-2019 14:20:30
--- NOTE | 2019-09-06 14:21 | EKG REPORT ---
SEVERITY:- ABNORMAL ECG - SINUS RHYTHM PROLONGED QT INTERVAL : Confirmed by: Debbie Lee 06-Sep-2019 14:20:26
[2019-09-06 16:09] VITALS: BP 126/83
== END 2019-09-06 15:50 | disposition other institution (70) ==
LOC: ER 01:19
DX: T43.592A Poisoning by other antipsychotics and neuroleptics, intentional self-harm, initial encounter (principal); Y92.009 Unspecified place in unspecified non-institutional (private) residence as the place of occurrence of the external cause; F41.9 Anxiety disorder, unspecified; F32.9 Major depressive disorder, single episode, unspecified; Z79.899 Other long term (current) drug therapy; F12.10 Cannabis abuse, uncomplicated
CPT/HCPCS: 93005; 99285; 96365; 36415; 80307 ×4; 83735; 84703; 85025; 80053; 81001; 93010; J3475; J3490